=== PATIENT | male | born 1950 | race Caucasian/White ===

== ENCOUNTER 2019-10-14 08:16 | Inpatient (IN) ==
[2019-10-14] MEDS ORDERED: DILTIAZEM 25 MG/5 ML VIAL IV ONE (08:25)
--- NOTE | 2019-10-14 08:34 | Emergency Department Note ---
General Adult HPI <Bo Palmer - Last Filed: 10/14/19 13:13> - General Source: patient Mode of arrival: ambulatory Limitations: no limitations <Bruno Martinez - Last Filed: 10/15/19 09:25> - General Chief complaint: Shortness of Breath/Dyspnea Stated complaint: SOB Time Seen by Provider: 10/14/19 08:23 - History of Present Illness HPI Narrative: I received this patient in checkout from Dr. Martinez. I reviewed his notes and history On discussion with the patient-he relates that he has no primary care doctor and is not on any medicines at home. No previous diagnosis of atrial fibrillation. His symptoms of dyspnea and shortness of breath on exertion have been going on for a week (Bo Palmer) 69-year old patient presenting with chief complaint of dyspnea. Patient's dyspnea arose over the course of minutes with associated symptoms of just feeling like he could not catch his breath. Past medical history is significant for obesity, deconditioning. This patient's dyspnea was exacerbated by exertion within 50-100 feet of walking or several minutes of exercise. Also was not associated with a nocturnal component. Symptoms are intermittent. Patient had similar episode about a week ago it spontaneously resolved and he did not seek medical attention. Additional associated symptoms such as cough, sputum production, nasal congestion, chest pain, peripheral edema, joint swelling, muscle weakness were also inquired and were negative. Patient primarily with d yspnea sensation of air hunger just cannot seem to get enough air. (Bruno Martinez) - Related Data Home Medications Medication Instructions Recorded Confirmed No Known Home Meds 10/14/19 10/14/19 Allergies Allergy/AdvReac Type Severity Reaction Status Date / Time No Known Drug Allergies Allergy Verified 10/14/19 08:16 Review of Systems All systems ED: reviewed and negative except as stated. <Bruno Martinez - Last Filed: 10/15/19 09:25> Past Medical History - Social History smoking status: Never smoker <Bruno Martinez - Last Filed: 10/15/19 09:25> Physical Exam <Bo Palmer - Last Filed: 10/14/19 13:13> Limitations: no limitations <Bruno Martinez - Last Filed: 10/15/19 09:25> The automatic blood pressure cuff is has artificially high reading. Manual bloo d pressure shows 170/90 (Bo Palmer) Vital signs and evaluated for evidence of hypoxia or hemodynamic compromise specifically tachycardia/hypotension General: Alert, interactive, appropriate Head: Atraumatic, normocephalic Eyes: Extraocular movements intact, sclera anicteric, no conjunctival injection Ears: Pinnae normal, no discharge Mouth: Oral mucosa moist, no acute swelling or evidence of infection Nares: No nasal discharge, patent bilaterally Neck: Trachea midline, full range of motion Chest: Symmetrical chest wall rise, breathing normally; nonlabored respirations Cardiovascular: Patient with excellent perfusion to the extremities; with tachycardia irregularly irregular Extremities: Full range of motion joints, no obvious deformities Neuro: Alert, oriented x3, cranial nerves II through XII grossly intact, patient without lateralizing findings such as weakness, or abnormal reflexes Psychiatric: Normal affect, normal mood (Bruon Martinez) Course Vital Signs Temperature 97.1 F 10/14/19 08:16 Pulse Rate 152 H 10/14/19 08:16 Respiratory Rate 24 H 10/14/19 08:16 Blood Pressure 180/90 10/14/19 08:16 Pulse Oximetry (%) 97 10/14/19 08:16 Temperature 97.3 F 10/15/19 04:34 Pulse Rate 87 10/15/19 07:46 Respiratory Rate 23 H 10/15/19 07:46 Blood Pressure 173/129 10/15/19 07:46 Pulse Oximetry (%) 96 10/15/19 07:46 Medical Decision Making - Lab Data Lab results reviewed: Yes I reviewed the patient's lab results. Result diagrams: 10/14/19 08:34 10/14/19 08:34 - Radiology Data Radiology results reviewed: Yes I reviewed the patient's radiology results. - EKG Data EKG #1 EKG attestation: Yes I reviewed and interpreted this EKG., Yes There are no EKG findings of acute coronary syndrome <oB Palmer - Last Filed: 10/14/19 13:13> - Lab Data Result diagrams: 10/15/19 05:00 10/15/19 05:00 <Bruno Martinez - Last Filed: 10/15/19 09:25> - MDM Narrative Medical decision making narrative: Acute dyspnea differential diagnosis considered in this case included atrial fibrillation RVR, WI, heart failure, cardiac tamponade, bronchospasm, pulmonary embolism, pneumothorax, pneumonia or infection, and upper airway obstruction. After review of chart and patient history/physical exam/labs as well as imaging the differential diagnosis addressed was acute hypoxic respiratory failure, COPD exacerbation, pneumonia, sepsis, pulmonary edema, pneumothorax, metabolic acidosis, acute respiratory distress syndrome, panic attack, airflow obstruction, restrictive lung disease, aspiration, congestive heart failure, hypercapnia, influenza, bronchitis, upper respiratory infection, pulmonary embolism, cardiac tamponade, valvular obstruction, WI/ACS, and arrhythmia. At time of shift change patient was still in the emergency department with labs and evaluation pending. Patient was given Cardizem 20 mg IV. Discussed the case with Dr. Palmer and he will assume care at this time. (Bruno Martinez) - Lab Data Lab Results 10/14/19 10/14/19 10/14/19 Range/Units 08:34 08:34 08:34 WBC 12.3 H (4.50-11.00) K/mcL RBC 5.44 (4.63-6.08) M/mcL Hgb 16.2 (13.7-17.5) g/dL Hct 49.5 (40.1-51.0) % MCV 91.0 (80.0-100.0) fL MCH 29.8 (26.0-34.0) pg MCHC 32.7 (31.0-36.0) g/dL RDW 13.4 (11.5-14.5) % Plt Count 219 (140-440) K/mcL MPV 11.6 H (7.4-10.4) fL Gran % 86.0 H (38.0-78.0) % Lymph % (Auto) 9.6 L (15.5-49.0) % [facility] % (Auto) 3.7 (1.0-12.0) % Eos % (Auto) 0.4 (0.0-7.0) % Baso % (Auto) 0.3 (0.0-2.0) % Gran # 10.55 H (1.80-8.00) K/mcL Lymph # (Auto) 1.18 L (1.50-4.80) K/mcL [facility] # (Auto) 0.45 (0.10-0.90) K/mcL Eos # (Auto) 0.05 (0.00-0.70) K/mcL Baso # (Auto) 0.04 (0.00-0.30) K/mcL PT (11.9-14.5) sec INR (0.9-1.1) Sodium 142 (133-145) mmol/L Potassium 4.2 (3.3-5.1) mmol/L Chloride 108 (96-108) mmol/L Carbon Dioxide 20 L (22-30) mmol/L Anion Gap 14.0 (8-16) BUN 13 (8-23) mg/dl Creatinine 1.1 (0.7-1.2) mg/dl GFR Calculation 68 Glucose 113 H (70-105) mg/dL Calcium 8.6 (8.6-10.4) mg/dl Total Bilirubin 0.8 (0.0-1.0) mg/dL AST 24 (0-37) U/l ALT 30 (0-40) U/l Alkaline Phosphatase 80 (39-117) U/L Troponin T < 0.01 (0-0.03) ng/ml NT-Pro-B Natriuret Pep 2330.0 H (0-125) pg/ml Total Protein 6.7 (5.9-8.4) gm/dL Albumin 4.2 (3.2-5.2) gm/dL Globulin 2.5 (2.2-3.7) gm/dL Albumin/Globulin Ratio 1.7 (1.0-2.3) TSH 3.24 (0.27-5.01) uIU/ml 10/14/19 Range/Units 08:34 WBC (4.50-11.00) K/mcL RBC (4.63-6.08) M/mcL Hgb (13.7-17.5) g/dL Hct (40.1-51.0) % MCV (80.0-100.0) fL MCH (26.0-34.0) pg MCHC (31.0-36.0) g/dL RDW (11.5-14.5) % Plt Count (140-440) K/mcL MPV (7.4-10.4) fL Gran % (38.0-78.0) % Lymph % (Auto) (15.5-49.0) % [facility] % (Auto) (1.0-12.0) % Eos % (Auto) (0.0-7.0) % Baso % (Auto) (0.0-2.0) % Gran # (1.80-8.00) K/mcL Lymph # (Auto) (1.50-4.80) K/mcL [facility] # (Auto) (0.10-0.90) K/mcL Eos # (Auto) (0.00-0.70) K/mcL Baso # (Auto) (0.00-0.30) K/mcL PT 14.2 (11.9-14.5) sec INR 1.1 (0.9-1.1) Sodium (133-145) mmol/L Potassium (3.3-5.1) mmol/L Chloride (96-108) mmol/L Carbon Dioxide (22-30) mmol/L Anion Gap (8-16) BUN (8-23) mg/dl Creatinine (0.7-1.2) mg/dl GFR Calculation Glucose (70-105) mg/dL Calcium (8.6-10.4) mg/dl Total Bilirubin (0.0-1.0) mg/dL AST (0-37) U/l ALT (0-40) U/l Alkaline Phosphatase (39-117) U/L Troponin T (0-0.03) ng/ml NT-Pro-B Natriuret Pep (0-125) pg/ml Total Protein (5.9-8.4) gm/dL Albumin (3.2-5.2) gm/dL Globulin (2.2-3.7) gm/dL Albumin/Globulin Ratio (1.0-2.3) TSH (0.27-5.01) uIU/ml - Radiology Data Chest x-ray shows evidence of pulmonary vascular congestion consistent with CHF (Bo Palmer) - EKG Data EKG #1 EKG results narrative: Atrial fibrillation with rapid ventricular response (Bo Palmer) Disposition Pt seen by INSEAM TRIMMING MACHINE OPERATOR/PA only: No <Bo Palmer - Last Filed: 10/14/19 13:13> Pt seen by INSEAM TRIMMING MACHINE OPERATOR/PA only: No <Bruno Martinez - Last Filed: 10/15/19 09:25> Clinical Impression: Atrial fibrillation with RVR Congestive heart failure Qualifiers: Heart failure type: high output Qualified Code(s): I50.83 - High output heart failure Summary: Initially he was treated with 20 mg of Cardizem which brought his rate down into the low 100s and brought his blood pressure down as well. He was feeling better However his blood pressure and heart rate started trending back up so Cardizem drip was started. Patient is not anticoagulated and has had symptoms for over a week and is therefore not eligible for cardioversion. This is new onset atrial fibrillation along with high-output heart failure. He will need to be admitted so we can get his atrial fibrillation under control with medicine and start anticoagulation. Patient was discussed with Dr. Alaniz, hospitalist, who agreed to accept patient for further care and evaluation in the hospital (Bo Palmer) Disposition: Xfer As Inpt ([facility]) Condition: Serious
[2019-10-14 08:56] LABS: Basophils # (Auto) 0.04 K/mcL (0.00-0.30); Basophils % (Auto) 0.3 % (0.0-2.0); Eosinophils # (Auto) 0.05 K/mcL (0.00-0.70); Eosinophils % (Auto) 0.4 % (0.0-7.0); Hematocrit 49.5 % (40.1-51.0); Hemoglobin 16.2 g/dL (13.7-17.5); Lymphocytes # (Auto) 1.18 K/mcL (1.50-4.80); Lymphocytes % (Auto) 9.6 % (15.5-49.0); Mean Corpuscular HGB Conc 32.7 g/dL (31.0-36.0); Mean Platelet Volume 11.6 fL (7.4-10.4); Monocytes # (Auto) 0.45 K/mcL (0.10-0.90); Monocytes % (Auto) 3.7 % (1.0-12.0); Platelet Count 219 K/mcL (140-440); RBC 5.44 M/mcL (4.63-6.08); Red Cell Distribution Width 13.4 % (11.5-14.5); WBC 12.3 K/mcL (4.50-11.00)
--- NOTE | 2019-10-14 09:01 | XRay Report ---
INDICATION: CP/dyspnea TECHNIQUE: AP portable semiupright chest x-ray COMPARISON: None FINDINGS: Lungs:No parenchymal consolidation or mass. There is peribronchial thickening consistent with mild interstitial pulmonary edema. No alveolar edema. No focal abnormality Heart, vascular:Cardiomegaly. Prominent pulmonary vascularity with upper lobe redistribution. Findings are consistent with congestive heart failure and mild interstitial pulmonary edema Mediastinum, rene:No mediastinal widening. No hilar mass Pleura:No pleural fluid. No pleural-based mass or calcification IMPRESSION: 1. Cardiomegaly 2. Findings consistent with mild congestive heart failure and interstitial pulmonary edema 3. No focal parenchymal infiltrate Interpreted and Authenticated by: Reynaldo Henry 10/14/19
[2019-10-14 09:03] LABS: INR 1.1 (0.9-1.1); Prothrombin Time 14.2 sec (11.9-14.5)
[2019-10-14 09:27] LABS: Thyroid Stimulating Hormone 3.24 uIU/ml (0.27-5.01)
[2019-10-14 09:38] LABS: ALT/SGPT 30 U/l (0-40); AST/SGOT 24 U/l (0-37); Albumin 4.2 gm/dL (3.2-5.2); Albumin/Globulin Ratio 1.7 (1.0-2.3); Alkaline Phosphatase 80 U/L (39-117); Bilirubin,Total 0.8 mg/dL (0.0-1.0); Blood Urea Nitrogen 13 mg/dl (8-23); Calcium 8.6 mg/dl (8.6-10.4); Carbon Dioxide 20 mmol/L (22-30); Chloride 108 mmol/L (96-108); Globulin 2.5 gm/dL (2.2-3.7); Glomerular Filtration Rate 68; Glucose 113 mg/dL (70-105)
[2019-10-14] MEDS ORDERED: DILTIAZEM 125 MG in DEXTROSE 5% IN WATER 100 ML IV SCH (11:15)
--- NOTE | 2019-10-14 13:05 | Internal Med History&Physical ---
Medical - H&P: HPI Patient information: Note initiated : 10/14/19 at 1:03 pm Service Date, if different from initiated Date: [] Patient: Ralf Kim 69 y/o M admitted on for SOB . Chief Complaint: [] History of present illness: 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 He says it got a little better next couple days then worsened again towards quite symptomatic and can only walk a 20 feet without being significantly short of breath. In the ED is found to be in A. fib RVR with rates initially around 150. Put on diltiazem drip. Chest x-ray showing pulmonary edema. He denies orthopnea or edema. Does not smoke or use any drugs. Only rare alcohol. Denies any chest pain. Occasional cough which is dry. Has not seen a primary care since he was probably a child. And is only seen doctors in the past when he broke his leg and had his appendix out. In the ED is placed on diltiazem drip with improve rate control. proBNP 2300. Troponin negative. Review of Systems: Pertinent positives as above. Denies headache/fever/chills/nausea/vomiting/chest or abdominal pain/diarrhea. Many 10 point review of system reviewed negative Medical - H&P: PMH Medical history: Past medical history: None Past surgical history: Appendectomy Left leg surgery for fracture Family: Mother had diabetes Father is healthy Social history: Patient denies tobacco Drinks alcohol rarely Denies drug use Lives by himself and works on a [employer] - H&P: Meds Home Medications Medication Instructions Recorded Confirmed Type No Known Home Meds 10/14/19 10/14/19 History Allergies Allergy/AdvReac Type Severity Reaction Status Date / Time No Known Drug Allergies Allergy Verified 10/14/19 08:16 Medical - H&P: Exam - Constitutional Vitals: Temp Pulse Resp BP Pulse Ox 97.1 F 104 H 26 H 179/143 95 10/14/19 08:16 10/14/19 12:46 10/14/19 12:46 10/14/19 12:46 10/14/19 12:46 Exam: General: Alert, Awake, No acute Distress, obese bmi 32 Eyes/N/T: EOMI, PERRL, Head/Neck: neck supple, normocephalic atraumatic, mild JVD CV: tachy irreg irreg, No murmurs, normal s1/s2 Pulm: Left base rales, no wheezing Abd: soft, nontender, +BS x4 Ext: no clubbing/cyanosis/edema Neuro: Alert, no focal deficits, moves all extremities, CN 2-12 grossly intact, symmetrical strength b/l upper/lower, sensations intact b/l upper/lower Skin: warm/dry Medical - H&P: Reslt - Labs CBC & Chem 7: 10/14/19 08:34 10/14/19 08:34 Labs: Short CBC 10/14/19 Range/Units 08:34 WBC 12.3 H (4.50-11.00) K/mcL Hgb 16.2 (13.7-17.5) g/dL Hct 49.5 (40.1-51.0) % Plt Count 219 (140-440) K/mcL BMP 10/14/19 08:34 Sodium 142 Potassium 4.2 Chloride 108 Carbon Dioxide 20 L BUN 13 Creatinine 1.1 Glucose 113 H Calcium 8.6 Cardiac Enzymes 10/14/19 Range/Units 08:34 Troponin T < 0.01 (0-0.03) ng/ml Liver Function 10/14/19 Range/Units 08:34 Total Bilirubin 0.8 (0.0-1.0) mg/dL AST 24 (0-37) U/l ALT 30 (0-40) U/l Alkaline Phosphatase 80 (39-117) U/L Albumin 4.2 (3.2-5.2) gm/dL Medical - H&P: A/P - Narrative A/P Narrative: A: *AFib/flutter RVR: new onset started 1 week ago -CHADSVASC=3 *Acute CHF: 2/2 above *HTN Emergency: previously undiagnosed and likely contributor to aboe * P: -wean off dilt gtt to BB -IV lasix -start lisinopril, prn IV -Further blood pressure and diuretic medication adjustment as clinical course dictates -echo pending - -f/u with cardiology outpt -ppx: lovenox to bid, transition to DOAC full code
[2019-10-14] MEDS ORDERED: FUROSEMIDE 40 MG/4 ML VIAL IV ONE ×2 (13:44→20:00)
[2019-10-14] MEDS ORDERED: POTASSIUM CHLORIDE 20 MEQ TABLET PO PRN ×2 (13:44)
[2019-10-14] MEDS ORDERED: SENNOSIDES 1 TABLET PO PRN (13:44)
[2019-10-14] MEDS ORDERED: ONDANSETRON 4 MG/2 ML VIAL IV PRN (13:44)
[2019-10-14] MEDS ORDERED: ACETAMINOPHEN 325 MG TABLET PO PRN (13:44)
[2019-10-14] MEDS ORDERED: CARVEDILOL 6.25 MG TABLET PO ONE (13:44)
[2019-10-14] MEDS ORDERED: POTASSIUM CHLORIDE 40 MEQ in DEXTROSE 5% IN WATER 500 ML IV PRN (13:44)
[2019-10-14] MEDS ORDERED: MAGNESIUM SULFATE 2 GM/50 ML BAG IV PRN (13:44)
[2019-10-14] MEDS ORDERED: ENOXAPARIN 120 MG/0.8 ML SYRINGE SQ ONE (13:44)
[2019-10-14] MEDS: 0.9 % SODIUM CHLORIDE 10 ML SYRINGE IV SCH ×5 (14:00→21:12)
[2019-10-14] MEDS: ENALAPRILAT 1.25 MG/ML VIAL IV PRN ×3 (14:50→23:13)
[2019-10-14 15:07] LABS: HDL Cholesterol 42 mg/dl (>40); LDL Cholesterol,Calculated 79 mg/dl (SEE CHART); Non-HDL Cholesterol 91 (LDL TARGET+30); Triglycerides 62 mg/dl (<150)
[2019-10-14] MEDS: DILTIAZEM 125 MG in DEXTROSE 5% IN WATER 100 ML IV SCH (19:35)
[2019-10-14] MEDS: 0.9 % SODIUM CHLORIDE 250 ML IV SCH (20:03)
[2019-10-15] MEDS: ENALAPRILAT 1.25 MG/ML VIAL IV PRN ×5 (00:50→14:49)
[2019-10-15] MEDS: LABETALOL 5 MG/ML ML IV PRN ×3 (01:59→05:11)
[2019-10-15] MEDS ORDERED: cloNIDine HCL 0.1 MG TABLET ONE (03:07)
[2019-10-15] MEDS: cloNIDine HCL 0.1 MG TABLET PO PRN ×2 (03:16→17:01)
[2019-10-15] MEDS: 0.9 % SODIUM CHLORIDE 10 ML SYRINGE IV SCH ×4 (03:24→20:12)
[2019-10-15 06:24] LABS: Basophils # (Auto) 0.04 K/mcL (0.00-0.30); Basophils % (Auto) 0.5 % (0.0-2.0); Eosinophils # (Auto) 0.12 K/mcL (0.00-0.70); Eosinophils % (Auto) 1.5 % (0.0-7.0); Hematocrit 47.1 % (40.1-51.0); Hemoglobin 15.6 g/dL (13.7-17.5); Lymphocytes # (Auto) 1.38 K/mcL (1.50-4.80); Lymphocytes % (Auto) 17.5 % (15.5-49.0); Mean Cell Volume 90.2 fL (80.0-100.0); Mean Corpuscular HGB Conc 33.1 g/dL (31.0-36.0); Mean Platelet Volume 11.7 fL (7.4-10.4); Monocytes # (Auto) 0.51 K/mcL (0.10-0.90); Monocytes % (Auto) 6.5 % (1.0-12.0); Platelet Count 211 K/mcL (140-440); RBC 5.22 M/mcL (4.63-6.08); Red Cell Distribution Width 13.5 % (11.5-14.5); WBC 7.9 K/mcL (4.50-11.00)
[2019-10-15 07:04] LABS: ALT/SGPT 28 U/l (0-40); AST/SGOT 26 U/l (0-37); Albumin 3.9 gm/dL (3.2-5.2); Albumin/Globulin Ratio 1.6 (1.0-2.3); Alkaline Phosphatase 77 U/L (39-117); Bilirubin,Direct 0.2 mg/dL (0.0-0.3); Blood Urea Nitrogen 19 mg/dl (8-23); Calcium 9.1 mg/dl (8.6-10.4); Carbon Dioxide 24 mmol/L (22-30); Chloride 104 mmol/L (96-108); Globulin 2.5 gm/dL (2.2-3.7); Glomerular Filtration Rate 56; Glucose 106 mg/dL (70-105); Lactate Dehydrogenase 238 U/L (94-250); Phosphorous 2.6 mg/dL (2.7-4.5); Triglycerides 77 mg/dl (<150); Uric Acid 7.3 mg/dL (2.5-8.0)
[2019-10-15] MEDS ORDERED: METOPROLOL TARTRATE 5 MG/5 ML VIAL IV PRN (07:48)
--- NOTE | 2019-10-15 07:52 | Internal Med Progress Note ---
Medical - PN: Subj Patient information: Note initiated : 10/15/19 at 7:47 am Service Date, if different from initiated Date: [] Patient: Ralf Kim 69 y/o M admitted on 10/14/19 for SOB . 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 He says it got a little better next couple days then worsened again towards quite symptomatic and can only walk a 20 feet without being significantly short of breath. In the ED is found to be in A. fib RVR with rates initially around 150. Put on diltiazem drip. Chest x-ray showing pulmonary edema. He denies orthopnea or edema. Does not smoke or use any drugs. Only rare alcohol. Denies any chest pain. Occasional cough which is dry. Has not seen a primary care since he was probably a child. And is only seen doctors in the past when he broke his leg and had his appendix out. In the ED is placed on diltiazem drip with improve rate control. proBNP 2300. Troponin negative. 10/14 Slept okay. Feeling much better today. No shortness of breath at rest. No cough. Blood pressure elevated throughout the night, as needed medications given. Review of Systems: denies headache/fever/chills/nausea/vomiting/chest or abdominal pain/diarrhea. Otherwise see above. - Constitutional Vitals: Vital Signs Temp Pulse Resp BP Pulse Ox 97.3 F 86 21 163/131 90 10/15/19 04:34 10/15/19 07:25 10/15/19 07:25 10/15/19 07:25 10/15/19 07:25 Period Temp Pulse Resp BP Sys/Dinero Pulse Ox Last 24 Hr 97.1 F-98.8 F 40-154 15-31 117-205/90-172 90-98 Intake and Output 10/14/19 10/15/19 10/15/19 21:59 05:59 13:59 Intake Total 122 240 Output Total 1900 500 Balance -1778 -260 Weight 118.297 kg Intake & Output: Intake & Output 10/14/19 10/15/19 10/15/19 21:59 05:59 13:59 Intake Total 122 240 Output Total 1900 500 Balance -1778 -260 Weight 118.297 kg Intake: IV 122 Sodium Chloride 0.9% 250 ml @ 12 20 mls/hr IV .[id number] [facility] Rx#: [id number] Cardizem 125 mg In Dextrose 5% 110 in Water 100 ml @ 5 MG/HR 5 mls /hr IV Q12H [facility] Rx#:[id number] Oral 240 Output: Urine Catheter Amount 200 Void Amount 1900 300 Other: Urine Appearance Clear Clear Urine Color Bright Yellow Bright Yellow Urine Odor Normal Exam: General: Alert, Awake, No acute Distress, obese Eyes/N/T: EOMI, Head/Neck: neck supple, CV: tachy irreg irreg, No murmurs, normal s1/s2 Pulm: no rales today, no wheezing Abd: soft, nontender, +BS x4 Ext: no clubbing/cyanosis/edema Neuro: Alert, no focal deficits, moves all extremities, Skin: warm/dry Medical - PN: Obj Da - Labs CBC & Chem 7: 10/15/19 05:00 10/15/19 05:00 Labs: Abnormal Lab Results 10/15/19 10/15/19 10/14/19 05:00 05:00 08:34 WBC MPV 11.7 H Gran % Lymph % (Auto) Gran # Lymph # (Auto) 1.38 L Carbon Dioxide 20 L Creatinine 1.3 H Glucose 106 H 113 H Phosphorus 2.6 L NT-Pro-B Natriuret Pep 2330.0 H 10/14/19 08:34 WBC 12.3 H MPV 11.6 H Gran % 86.0 H Lymph % (Auto) 9.6 L Gran # 10.55 H Lymph # (Auto) 1.18 L Carbon Dioxide Creatinine Glucose Phosphorus NT-Pro-B Natriuret Pep Meds: Medications Acetaminophen (Tylenol) 650 mg PO Q6HP PRN PRN Reason: PAIN/FEVER > 101 Last Admin: 10/14/19 22:12 Dose: 650 mg Documented by: Carvedilol (Coreg) 6.25 mg PO BIDCC [facility] Clonidine HCl (Catapres) 0.1 mg PO Q6HP PRN PRN Reason: Hypertension Last Admin: 10/15/19 03:16 Dose: 0.1 mg Documented by: Enalaprilat (Vasotec) 0 mg IV Q2HP PRN PRN Reason: Hypertension Last Admin: 10/15/19 07:43 Dose: 0.625 mg Documented by: Enoxaparin Sodium (Lovenox) 100 mg SQ BID [facility] Diltiazem HCl 125 mg/ Dextrose 125 mls @ 5 mls/hr IV Q12H [facility]; Protocol Last Titration: 10/14/19 21:01 Dose: 0 mg/hr, 0 mls/hr Documented by: Potassium Chloride 40 meq/ (Dextrose) 520 mls @ 130 mls/hr IV UD PRN PRN Reason: Potassium < 3 Magnesium Sulfate (Magnesium Sulfate) 2 gm in 50 mls @ 50 mls/hr IV UD PRN PRN Reason: Magnesium </= 1.6 Sodium Chloride (Sodium Chloride 0.9%) 250 mls @ 20 mls/hr IV .[id number] [facility] Last Infusion: 10/14/19 21:12 Dose: 0 mls/hr Documented by: Labetalol HCl (Trandate) 10 - 20 mg IV Q2H PRN PRN Reason: Hypertension Last Admin: 10/15/19 05:11 Dose: 10 mg Documented by: Ondansetron HCl (Zofran) 4 mg IV Q4HP PRN PRN Reason: Nausea And Vomiting Potassium Chloride (Kdur) 40 meq PO UD PRN PRN Reason: Potssium is 3-3.5 Potassium Chloride (Kdur) 40 meq PO UD PRN PRN Reason: Potassium < 3 Senna (Senokot) 2 tab PO DAILYP PRN PRN Reason: Constipation Sodium Chloride (Saline Flush) 10 ml IV Q8 [facility] Last Admin: 10/15/19 05:16 Dose: 10 ml Documented by: Medical - PN: A/P - Time Spent With Patient Total time spent is greater than 50% in coordination of care (as documented) at patient's floor/unit and/or counseling patient: - Narrative A/P Narrative: A: *AFib/flutter RVR: new onset started 1 week ago -CHADSVASC=3 -TSH/Mg/Trop ok *Acute CHF: 2/2 above -good diuresis o/n *HTN Emergency: previously undiagnosed and likely contributor to above -needs continued adjustment in medications *Obesity: P: -dilt gtt off to coreg -s/p IV lasix -start lisinopril, prn IV -Further blood pressure and diuretic medication adjustment as clinical course dictates -echo pending - -f/u with cardiology outpt -ppx: lovenox to bid, transition to DOAC full code Medical - PN: Qual - Stroke Symptom Onset Unknown: No - VTE Deep Vein Thrombosis/Pulmonary Embolism Present on Admission: No
[2019-10-15] MEDS ORDERED: CARVEDILOL 6.25 MG TABLET PO SCH (08:00)
[2019-10-15] MEDS ORDERED: LABETALOL 5 MG/ML ML IV PRN (08:30)
[2019-10-15] MEDS: ENOXAPARIN 40 MG/0.4 ML SYRINGE SQ SCH ×2 (08:40→20:11)
[2019-10-15] MEDS: CARVEDILOL 12.5 MG TABLET PO SCH ×2 (08:40→17:00)
--- NOTE | 2019-10-15 09:44 | XRay Report ---
INDICATION: f/u chf TECHNIQUE: PA and lateral upright chest x-ray COMPARISON: Previous AP chest x-ray dated 10/14/2019 FINDINGS: Lungs: There continues to be mild peribronchial thickening. Upper lobe pulmonary vascularity is prominent consistent with pulmonary congestion. There are bilateral lower lobe pulmonary parenchymal densities. Pneumonia is possible. There are [id number] pleural effusions bilaterally. Heart, vascular: There is mild cardiomegaly. This appears improved. Pulmonary vascularity is prominent consistent with pulmonary congestion. There is mild peribronchial thickening which may indicate mild interstitial edema Mediastinum, rene: No mediastinal widening. No hilar mass Pleura:Small to moderate bilateral pleural effusions Thoracic spine, ribs: No thoracic compression fracture. Ribs are negative. No fracture. No lytic lesion IMPRESSION: 1. Mild cardiomegaly. This appears improved 2. Pulmonary congestion. Mild peribronchial thickening may represent mild interstitial edema 3. Bibasilar parenchymal densities consistent with atelectasis or pneumonia. [id number] bilateral pleural effusions Interpreted and Authenticated by: Reynaldo Henry 10/15/19
[2019-10-15] MEDS: LISINOPRIL 10 MG TABLET PO SCH (09:51)
[2019-10-15] MEDS: DILTIAZEM 125 MG in DEXTROSE 5% IN WATER 100 ML IV SCH ×2 (09:52→19:46)
[2019-10-15] MEDS: 0.9 % SODIUM CHLORIDE 250 ML IV SCH ×2 (09:52→19:47)
[2019-10-15] MEDS ORDERED: CARVEDILOL 12.5 MG TABLET PO PRN (19:40)
[2019-10-16] MEDS: cloNIDine HCL 0.1 MG TABLET PO PRN (04:03)
[2019-10-16] MEDS: 0.9 % SODIUM CHLORIDE 10 ML SYRINGE IV SCH ×4 (04:03→20:14)
[2019-10-16 06:52] LABS: ALT/SGPT 28 U/l (0-40); AST/SGOT 23 U/l (0-37); Albumin 3.7 gm/dL (3.2-5.2); Albumin/Globulin Ratio 1.5 (1.0-2.3); Alkaline Phosphatase 68 U/L (39-117); Bilirubin,Total 0.8 mg/dL (0.0-1.0); Calcium 9.1 mg/dl (8.6-10.4); Carbon Dioxide 26 mmol/L (22-30); Chloride 105 mmol/L (96-108); Globulin 2.4 gm/dL (2.2-3.7); Glomerular Filtration Rate 51; Glucose 94 mg/dL (70-105); Lactate Dehydrogenase 212 U/L (94-250); Phosphorous 2.8 mg/dL (2.7-4.5); Triglycerides 83 mg/dl (<150); Uric Acid 7.6 mg/dL (2.5-8.0)
[2019-10-16 06:55] LABS: Bilirubin,Direct < 0.2 mg/dL (0.0-0.3); Blood Urea Nitrogen 26 mg/dl (8-23)
--- NOTE | 2019-10-16 07:56 | Internal Med Progress Note ---
Medical - PN: Subj Patient information: Note initiated : 10/16/19 at 7:49 am Service Date, if different from initiated Date: [] Patient: Ralf Kim 69 y/o M admitted on 10/14/19 for SOB . 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 He says it got a little better next couple days then worsened again towards quite symptomatic and can only walk a 20 feet without being significantly short of breath. In the ED is found to be in A. fib RVR with rates initially around 150. Put on diltiazem drip. Chest x-ray showing pulmonary edema. He denies orthopnea or edema. Does not smoke or use any drugs. Only rare alcohol. Denies any chest pain. Occasional cough which is dry. Has not seen a primary care since he was probably a child. And is only seen doctors in the past when he broke his leg and had his appendix out. In the ED is placed on diltiazem drip with improve rate control. proBNP 2300. Troponin negative. 10/14 Slept okay. Feeling much better today. No shortness of breath at rest. No cough. Blood pressure elevated throughout the night, as needed medications given. 10/15 Doing well. Slept well. No coughing or shortness of breath. Blood pressure trending the right direction still needs further adjustment. Review of Systems: denies headache/fever/chills/nausea/vomiting/chest or abdominal pain/diarrhea. Otherwise see above. - Constitutional Vitals: Vital Signs Temp Pulse Resp BP Pulse Ox 97.8 F 88 17 146/98 96 10/16/19 05:50 10/16/19 05:50 10/16/19 05:50 10/16/19 05:50 10/16/19 05:50 Period Temp Pulse Resp BP Sys/Dinero Pulse Ox Last 24 Hr 97.4 F-97.8 F 35-107 17-28 129-187/90-127 94-96 Intake and Output 10/15/19 10/16/19 10/16/19 21:59 05:59 13:59 Intake Total 240 200 Balance 240 200 Weight 118.75 kg Intake & Output: Intake & Output 10/15/19 10/16/19 10/16/19 21:59 05:59 13:59 Intake Total 240 200 Balance 240 200 Weight 118.75 kg Intake: Oral 240 200 Other: Meal Dinner Percent of Meal Consumed 100% Urine Appearance Clear Urine Color Bright Yellow Urine Odor Normal # Voids 3 1 Exam: General: Alert, Awake, No acute Distress, obese Eyes/N/T: EOMI, Head/Neck: neck supple, CV: irreg irreg, No murmurs, normal s1/s2 Pulm: right base diminished, no wheezing/rhonchi Abd: soft, nontender, +BS x4 Ext: no clubbing/cyanosis/edema Neuro: Alert, no focal deficits, moves all extremities, Skin: warm/dry Medical - PN: Obj Da - Labs CBC & Chem 7: 10/15/19 05:00 10/16/19 05:00 Labs: Abnormal Lab Results 10/16/19 10/15/19 10/15/19 05:00 05:00 05:00 WBC MPV 11.7 H Gran % Lymph % (Auto) Gran # Lymph # (Auto) 1.38 L Carbon Dioxide BUN 26 H Creatinine 1.4 H 1.3 H Glucose 106 H Phosphorus 2.6 L NT-Pro-B Natriuret Pep 10/14/19 10/14/19 08:34 08:34 WBC 12.3 H MPV 11.6 H Gran % 86.0 H Lymph % (Auto) 9.6 L Gran # 10.55 H Lymph # (Auto) 1.18 L Carbon Dioxide 20 L BUN Creatinine Glucose 113 H Phosphorus NT-Pro-B Natriuret Pep 2330.0 H Meds: Medications Acetaminophen (Tylenol) 650 mg PO Q6HP PRN PRN Reason: PAIN/FEVER > 101 Last Admin: 10/14/19 22:12 Dose: 650 mg Documented by: Carvedilol (Coreg) 12.5 mg PO BIDCC CRISTINA Last Admin: 10/15/19 17:00 Dose: 12.5 mg Documented by: Clonidine HCl (Catapres) 0.1 mg PO Q6HP PRN PRN Reason: Hypertension Last Admin: 10/16/19 04:03 Dose: 0.1 mg Documented by: Enalaprilat (Vasotec) 0 mg IV Q2HP PRN PRN Reason: Hypertension Last Admin: 10/15/19 14:49 Dose: 0.625 mg Documented by: Enoxaparin Sodium (Lovenox) 100 mg SQ BID [facility] Last Admin: 10/15/19 20:11 Dose: 100 mg Documented by: Diltiazem HCl 125 mg/ Dextrose 125 mls @ 5 mls/hr IV Q12H [facility]; Protocol Last Admin: 10/15/19 19:46 Dose: Not Given Documented by: Potassium Chloride 40 meq/ (Dextrose) 520 mls @ 130 mls/hr IV UD PRN PRN Reason: Potassium < 3 Magnesium Sulfate (Magnesium Sulfate) 2 gm in 50 mls @ 50 mls/hr IV UD PRN PRN Reason: Magnesium </= 1.6 Sodium Chloride (Sodium Chloride 0.9%) 250 mls @ 20 mls/hr IV .[id number] [facility] Last Admin: 10/15/19 19:47 Dose: Not Given Documented by: Labetalol HCl (Trandate) 10 - 20 mg IV Q2HP PRN PRN Reason: Hypertension Lisinopril (Zestril) 10 mg PO DAILY [facility] Last Admin: 10/15/19 09:51 Dose: 10 mg Documented by: Metoprolol Tartrate (Lopressor) 5 mg IV Q2HP PRN PRN Reason: Tachyarrhythmias HR>110 Ondansetron HCl (Zofran) 4 mg IV Q4HP PRN PRN Reason: Nausea And Vomiting Pneumococcal Polyvalent Vaccine (Pneumovax 23) 0.5 ml IM .ONCE ONE Stop: 10/16/19 10:01 Potassium Chloride (Kdur) 40 meq PO UD PRN PRN Reason: Potssium is 3-3.5 Potassium Chloride (Kdur) 40 meq PO UD PRN PRN Reason: Potassium < 3 Senna (Senokot) 2 tab PO DAILYP PRN PRN Reason: Constipation Sodium Chloride (Saline Flush) 10 ml IV Q8 [facility] Last Admin: 10/16/19 04:03 Dose: 10 ml Documented by: Medical - PN: A/P - Time Spent With Patient Total time spent is greater than 50% in coordination of care (as documented) at patient's floor/unit and/or counseling patient: - Narrative A/P Narrative: A: *AFib/flutter RVR: new onset started 1 week ago -CHADSVASC=3 -TSH/Mg/Trop ok *Acute CHF: 2/2 above -improved *HTN Emergency: previously undiagnosed and likely contributor to above -needs continued adjustment in medications *Obesity: *VALENTINA on CKD II: s/p diuresis, monitor *?COLEMAN: P: -dilt gtt off to coreg (increase) -s/p IV lasix, hold -start lisinopril, -Further blood pressure and diuretic medication adjustment as clinical course dictates -echo pending - -f/u with cardiology outpt -f/u with pulmonology for Sleep study -ppx: lovenox to eliquis full code Medical - PN: Qual - Stroke Symptom Onset Unknown: No - VTE Deep Vein Thrombosis/Pulmonary Embolism Present on Admission: No
--- NOTE | 2019-10-16 09:15 | Discharge Summary ---
Medical - DS: Prov Patient information: Note initiated : 10/16/19 at 9:13 am Service Date, if different from initiated Date: [] Patient: Ralf Kim 69 y/o M admitted on 10/14/19 for SOB . Chief Complaint: [] Date of admission: 10/14/19 13:31 Discharge date: 10/17/19 Consults: 10/14/19 12:45 Consult to Physician [CONS] Stat Comment: Consulting Provider: Sarabjit Alaniz Reason For Exam: Physician to Consult Medical - DS: Meds - Discharge Medications Prescriptions: Carvedilol [Coreg] 25 mg PO BIDCC #90 tab Apixaban [Eliquis] 5 mg PO BID #60 tab Furosemide [Lasix] 20 mg PO DAILY #30 tablet Lisinopril [Zestril] 10 mg PO DAILY #30 tab Active and Home Medications: Home Medications No Known Home Meds 10/14/19 [History Confirmed 10/14/19 Last Taken Unknown] Home Medications Apixaban [Eliquis] 5 mg PO BID #60 tab 10/16/19 [Rx Last Taken Unknown] Carvedilol [Coreg] 25 mg PO BIDCC #90 tab 10/16/19 [Rx Last Taken Unknown] Lisinopril [Zestril] 10 mg PO DAILY #30 tab 10/16/19 [Rx Last Taken Unknown] Furosemide [Lasix] 20 mg PO DAILY #30 tablet 10/17/19 [Rx Last Taken Unknown] Medical - DS: Hosp Hospital Course: 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 He says it got a little better next couple days then worsened again towards quite symptomatic and can only walk a 20 feet without being significantly short of breath. In the ED is found to be in A. fib RVR with rates initially around 150. Put on diltiazem drip. Chest x-ray showing pulmonary edema. He denies orthopnea or edema. Does not smoke or use any drugs. Only rare alcohol. Denies any chest pain. Occasional cough which is dry. Has not seen a primary care since he was probably a child. And is only seen doctors in the past when he broke his leg and had his appendix out. In the ED is placed on diltiazem drip with improve rate control. proBNP 2300. Troponin negative. 10/14 Slept okay. Feeling much better today. No shortness of breath at rest. No cough. Blood pressure elevated throughout the night, as needed medications given. 10/15 Doing well. Slept well. No coughing or shortness of breath. Blood pressure trending the right direction still needs further adjustment. Echo technically difficult study showing EF 25-30%, diastolic dysfxn 10/16 Doing well. Heart rate controlled and blood pressure continues to improve. Will likely need further adjustment by PCP/Cardiology regarding blood pressure A: *AFib/flutter RVR: new onset started 1 week ago -CHADSVASC=3 -eliquis started *Acute systolic/diastolic CHF: 2/ above -echo EF 25-30%, diastolic dysfxn *HTN Emergency: previously undiagnosed and likely contributor to above -now on coreg and lisinopril *Obesity: *VALENTINA on CKD II: s/p diuresis, monitor *likely COLEMAN: f/u with pulm Discharge diagnosis: New A. fib RVR heart failure hypertension chronic kidney disease Secondary discharge diagnosis: New systolic diastolic heart failure - Time Spent with Patient Total time spent providing and/or coordinating discharge services: Greater than 30 minutes Medical - DS: Exam - Constitutional Vitals: Vital Signs Temp Pulse Resp BP BP BP Pulse Ox 10/16/19 08:16 97.5 F 18 149/99 96 10/16/19 05:50 97.8 F 88 17 146/98 96 10/16/19 04:00 158/96 10/16/19 02:45 97.5 F 86 21 146/102 95 10/16/19 02:00 78 20 138/98 95 10/16/19 01:00 148/96 10/16/19 00:04 97.8 F 81 28 H 170/100 94 10/15/19 22:01 138/117 95 10/15/19 21:08 136/99 94 10/15/19 20:01 97.4 F 129/113 94 10/15/19 19:01 132/94 10/15/19 16:55 156/102 10/15/19 14:42 160/100 10/15/19 14:31 171/115 10/15/19 14:01 176/112 10/15/19 14:00 79 96 10/15/19 13:31 177/108 10/15/19 13:01 165/104 10/15/19 12:37 170/90 10/15/19 12:31 167/93 10/15/19 11:01 147/101 10/15/19 10:01 161/104 10/15/19 09:49 174/102 Intake and Output 10/15/19 10/16/19 10/16/19 21:59 05:59 13:59 Intake Total 240 200 240 Balance 240 200 240 Intake: Oral 240 200 240 Other: Meal Dinner Breakfast Percent of Meal Consumed 100% 100% Urine Appearance Clear Urine Color Bright Yellow Urine Odor Normal # Voids 3 1 Weight 118.75 kg Medical - DS: Data Labs on day of discharge: Labs from last 24 hours 10/16/19 05:00 Sodium 142 Potassium 4.0 Chloride 105 Carbon Dioxide 26 Anion Gap 11.0 BUN 26 H Creatinine 1.4 H GFR Calculation 51 Glucose 94 Uric Acid 7.6 Calcium 9.1 Phosphorus 2.8 Magnesium 2.0 Total Bilirubin 0.8 Direct Bilirubin < 0.2 GGT 21 AST 23 ALT 28 Alkaline Phosphatase 68 Lactate Dehydrogenase 212 Total Protein 6.1 Albumin 3.7 Globulin 2.4 Albumin/Globulin Ratio 1.5 Triglycerides 83 Medical - DS: A/P - Patient/Caregiver Discharge Instructions Activity: increase activity as tolerated Diet: Cardiac Additional Instructions: Referral to see pole peeler in 3 to 10 days Referral to see internet marketing assistant for possible sleep study in 7 to 10 days Prescriptions: Carvedilol [Coreg] 25 mg PO BIDCC #90 tab Apixaban [Eliquis] 5 mg PO BID #60 tab Lisinopril [Zestril] 10 mg PO DAILY #30 tab - Follow up Plan Disposition: Home, Self-Care Prognosis: Undetermined Rehab Potential: Fair Overall status at discharge: patient is progressing back to baseline Medical - DS: Qual - VTE Deep Vein Thrombosis/Pulmonary Embolism Present on Admission: No
[2019-10-16] MEDS: CARVEDILOL 12.5 MG TABLET PO SCH ×2 (09:37→17:39)
[2019-10-16] MEDS: LISINOPRIL 10 MG TABLET PO SCH (09:37)
[2019-10-16] MEDS: DILTIAZEM 125 MG in DEXTROSE 5% IN WATER 100 ML IV SCH ×2 (09:38→20:14)
[2019-10-16] MEDS: APIXABAN 5 MG TABLET PO SCH ×2 (09:38→20:16)
[2019-10-16] MEDS ORDERED: PNEUMOCOCCAL 23-VAL P-SAC VAC 0.5 ML SYRINGE IM ONE (10:00)
[2019-10-16] MEDS: 0.9 % SODIUM CHLORIDE 250 ML IV SCH (14:35)
[2019-10-17] MEDS: 0.9 % SODIUM CHLORIDE 10 ML SYRINGE IV SCH ×2 (05:45→11:39)
[2019-10-17 06:30] LABS: Bilirubin,Direct < 0.2 mg/dL (0.0-0.3); Chloride 105 mmol/L (96-108)
[2019-10-17 06:39] LABS: ALT/SGPT 29 U/l (0-40); AST/SGOT 25 U/l (0-37); Albumin 3.5 gm/dL (3.2-5.2); Albumin/Globulin Ratio 1.5 (1.0-2.3); Alkaline Phosphatase 66 U/L (39-117); Bilirubin,Total 0.6 mg/dL (0.0-1.0); Blood Urea Nitrogen 25 mg/dl (8-23); Calcium 8.8 mg/dl (8.6-10.4); Carbon Dioxide 26 mmol/L (22-30); Globulin 2.3 gm/dL (2.2-3.7); Glomerular Filtration Rate 56; Glucose 92 mg/dL (70-105); Lactate Dehydrogenase 244 U/L (94-250); Phosphorous 3.2 mg/dL (2.7-4.5); Triglycerides 80 mg/dl (<150); Uric Acid 7.4 mg/dL (2.5-8.0)
[2019-10-17] MEDS: CARVEDILOL 12.5 MG TABLET PO SCH (07:43)
[2019-10-17] MEDS: LISINOPRIL 10 MG TABLET PO SCH (09:24)
[2019-10-17] MEDS: APIXABAN 5 MG TABLET PO SCH (09:24)
[2019-10-17] MEDS: DILTIAZEM 125 MG in DEXTROSE 5% IN WATER 100 ML IV SCH (09:24)
[2019-10-17] MEDS ORDERED: FLU VACC QS2019-20(6MOS UP)/PF 60 MCG/0.5 ML SYRINGE IM ONE (10:00)
[2019-10-17] MEDS: ENALAPRILAT 1.25 MG/ML VIAL IV PRN (11:37)
== END 2019-10-17 13:00 | disposition home or self-care (01) | DRG 308 ==
LOC: ED 08:16 → ICU 13:31
PROVIDERS: ADMIT Internal Medicine; ATTEND Internal Medicine